=== PATIENT | female | born 1960 | race Caucasian/White ===

== ENCOUNTER 2023-04-12 12:50 | Emergency (ER) | payer OTHER, BC ==
[2023-04-12] MEDS ORDERED: Amlodipine 5 MG TAB ONE (14:15)
[2023-04-12] MEDS ORDERED: Lisinopril 10 MG TAB ONE (14:15)
[2023-04-12] MEDS ORDERED: HYDROcodone/Acetaminophen 5/325 mg Tablet ONE (14:16)
== END 2023-04-12 16:15 | disposition home or self-care (01) ==
LOC: MADERS 12:50
DX: S52.341 Displaced spiral fracture of shaft of radius, right arm (principal); S60.222A Contusion of left hand, initial encounter; S80.01XA Contusion of right knee, initial encounter; S20.211A Contusion of right front wall of thorax, initial encounter; I10 Essential (primary) hypertension; E11.9 Type 2 diabetes mellitus without complications; V43.62XA Car passenger injured in collision with other type car in traffic accident, initial encounter; Y92.410 Unspecified street and highway as the place of occurrence of the external cause
CPT/HCPCS: 29125; 71120; 72125